=== PATIENT | male | born 1995 | race Hispanic/Latino ===

== ENCOUNTER 2021-05-19 00:49 | Emergency (ER) | payer SELFPAY ==
[~2021-05-19] VITALS: Ht 149.9 cm; Wt 72.6 kg
[2021-05-19] MEDS ORDERED: KETOROLAC TROMETHAMINE 30 MG/ML VIAL IV STA (01:28)
[2021-05-19] MEDS ORDERED: ACETAMINOPHEN 325 MG TAB PO ONE (01:30)
[2021-05-19] MEDS ORDERED: ACETAMINOPHEN 325 MG TAB ONE (01:51)
[2021-05-19] MEDS ORDERED: KETOROLAC TROMETHAMINE 30 MG/ML VIAL ONE (01:52)
== END 2021-05-19 02:55 | disposition home or self-care (01) ==
LOC: ER 01:30
DX: U07.1 COVID-19 (principal)
CPT/HCPCS: 99283; J1885; U0002